=== PATIENT | female | born 1980 | race Caucasian/White ===

== ENCOUNTER 2016-10-03 20:40 | Emergency (ER) | payer OTHER ==
[~2016-10-03 20:40] MED LIST: AFRIN3 ML; ALBUTEROL17 GM; ALBUTEROL17 GM INH; ALBUTEROL20 ml INH; AURALGAN EAR DR14 ML OT; BIRTH CONTROL PILL PO; CLARITIN10 MG PO; CYMBALTA PO; CYMBALTA20 MG PO; CYMBALTA30 MG PO; DOXYCYCLINE MO100 MG PO; DOXYCYCLINE PO; FLONASE ALLERG9.9 ML; IBUPROFEN800 MG PO; KLONOPIN0.5 MG; KLONOPIN0.5 MG PO; KLONOPIN1 MG PO; LORTAB 5/500 TA1 TA1 PO; MACRODANTIN PO; MOBIC15 MG PO; MOTRIN600 M1 PO; NO MEDICATIONS; PREDNISONE PO; PRENATAL VITAMI1 TA3 PO; PRILOSEC; PRILOSEC PO; PRILOSEC20 MG DOB; PROZAC10 M1 PO; VIBRAMYCIN100 M1 PO; ZITHROMAX PO
== END 2016-10-03 21:25 | disposition home or self-care (01) ==
LOC: SED 20:40
DX: S61.306A Unspecified open wound of right little finger with damage to nail, initial encounter (principal); J45.909 Unspecified asthma, uncomplicated; K21.9 Gastro-esophageal reflux disease without esophagitis; F41.8 Other specified anxiety disorders; F17.210 Nicotine dependence, cigarettes, uncomplicated; Z88.0 Allergy status to penicillin; Z88.2 Allergy status to sulfonamides; Z88.1 Allergy status to other antibiotic agents; Z88.8 Allergy status to other drugs, medicaments and biological substances; X58.XXXA Exposure to other specified factors, initial encounter; Y92.098 Other place in other non-institutional residence as the place of occurrence of the external cause
CPT/HCPCS: 29130; 99283

== ENCOUNTER 2016-11-07 12:07 | Emergency (ER) | payer OTHER ==
--- NOTE | ~2016-11-07 | CR63 ---
[facility] A Service of [facility] & [facility] RADIOLOGY TEXT RESULTS PATIENT: NIURKA TAYLOR LOCATION: SED : 78 UNIT #: [id number] AGE: [address]: Alma Pablo APRN SEX: F ORDER DR: [id number] [address] [address] [id number] E MR#: [id number] Acc #: [id number] NAME: NIURKA TAYLOR : 1980 SEX: F STUDY DATE/TIME: 11/07/2016 12:46 UNIT: SED ROOM: STUDY DESCRIPTION: CR Chest 2 View Attending Physician: Alma Pablo A.P.R.N. Ordering Physician: Alma Pablo A.P.R.N. Primary Care Physician: Ji Contreras A.P.R.N. MEDICAL IMAGING REPORT This report is preliminary unless electronic signature is present. EXAM Chest 2 views 11/07/2016 1246 hours CLINICAL HISTORY 36-year-old woman complaining of cough, aches, chills and runny nose since 11/05/2016. COMPARISON 03/05/2014 FINDINGS Upright PA and lateral views of the chest demonstrate normal cardiac, mediastinal and hilar contours. Lungs are well-expanded and clear. There is no effusion or pneumothorax. IMPRESSION Normal two-view chest exam. No change from 03/05/2014. Dictated by... Alisson Fraser M.D. THIS IS AN ELECTRONICALLY VERIFIED REPORT Alisson Fraser M.D. at 11/08/2016 9:38 AM VIRIDIANA/anita TD: 11/07/2016 14:54 JOB #: [id number] MEDICAL IMAGING REPORT Page 1 of 1
[2016-11-07] MEDS ORDERED: BIRTH CONTROL PILL (12:22)
[2016-11-07 13:56] LABS: INFLUENZA A NEG (NEG); INFLUENZA B NEG (NEG)
== END 2016-11-07 14:01 | disposition home or self-care (01) ==
LOC: SED 12:07
PROVIDERS: Nurse Practitioner
DX: J20.9 Acute bronchitis, unspecified (principal); J45.909 Unspecified asthma, uncomplicated; K21.9 Gastro-esophageal reflux disease without esophagitis; F17.200 Nicotine dependence, unspecified, uncomplicated; Z88.0 Allergy status to penicillin; Z88.1 Allergy status to other antibiotic agents; Z88.2 Allergy status to sulfonamides
CPT/HCPCS: 71020; 87804; 99283